=== PATIENT | female | born 1960 | race Caucasian/White ===

== ENCOUNTER 2017-06-18 21:03 | Emergency (ER) | payer BC ==
[2017-06-18 21:05] VITALS: BP 104/55; PULSE 88; RESP 20; TEMP 98.1; O2SAT 98
[2017-06-18 21:30] VITALS: BP 110/72; PULSE 74; RESP 18; O2SAT 98
[2017-06-18] MEDS ORDERED: NP T90TA PO (21:32)
[2017-06-18 21:42] LABS: AUTOMATED NEUTROPHIL # 2.4 TH/MM3 (1.8-7.7); BASOPHIL % 0.8 % (0.0-2.0); EOSINOPHIL # 0.3 TH/MM3 (0-0.4); EOSINOPHIL % 5.9 % (0.0-4.0); HEMATOCRIT 40.3 % (35.0-46.0); HEMOGLOBIN 13.2 GM/DL (11.6-15.3); LYMPH % 34.8 % (9.0-44.0); LYMPHOCYTE # 1.8 TH/MM3 (1.0-4.8); MEAN CELL VOLUME 94.9 FL (80.0-100.0); MEAN CORPUSCULAR HEMOGLOBIN 31.2 PG (27.0-34.0); MEAN CORPUSCULAR HGB CONC 32.8 % (32.0-36.0); MEAN PLATELET VOLUME 7.9 FL (7.0-11.0); MONOCYTE # 0.5 TH/MM3 (0-0.9); NEUT % 49.5 % (16.0-70.0); PLATELET COUNT 249 TH/MM3 (150-450); RED BLOOD COUNT 4.24 MIL/MM3 (4.00-5.30); RED CELL DISTRIBUTION WIDTH 12.1 % (11.6-17.2)
[2017-06-18] MEDS ORDERED: PANTOPRAZOLE SODIUM 40 MG VIAL IV PUSH ONE (21:45)
--- NOTE | 2017-06-18 21:52 | RADRPT ---
EXAM DATE/TIME: 06/18/2017 21:36 [place] COMPARISON: No previous studies available for comparison. INDICATIONS : Chest pain and rapid heart rate starting this afternoon. MEDICAL HISTORY : None. SURGICAL HISTORY : Lumpectomy. ENCOUNTER: Initial ACUITY: 1 day PAIN SCORE: 10 LOCATION: Bilateral chest FINDINGS: PA and lateral views of the chest demonstrate the lungs to be symmetrically aerated without evidence of mass, infiltrate or effusion. The cardiomediastinal contours are unremarkable. Osseous structure s are intact. CONCLUSION: No acute cardiopulmonary disease. Collin Lopez MD on June 18, 2017 at 21:49 Board Certified Radiologist. This report was verified electronically.
[2017-06-18 21:53] LABS: CHLORIDE 108 MEQ/L (98-107); SODIUM (NA) 143 MEQ/L (136-145)
[2017-06-18 21:56] LABS: CALCIUM 8.3 MG/DL (8.5-10.1)
[2017-06-18 21:57] LABS: ALBUMIN 3.5 GM/DL (3.4-5.0); BICARBONATE 27.6 MEQ/L (21.0-32.0); BLOOD UREA NITROGEN 21 MG/DL (7-18); GLUCOSE,RANDOM 119 MG/DL (74-106); LIPASE 175 U/L (73-393)
[2017-06-18 22:00] LABS: ALT (GPT) 54 U/L (10-53); AST (GOT) 26 U/L (15-37); CREATININE 0.69 MG/DL (0.50-1.00); GLOMERULAR FILTRATION RATE 87 ML/MIN (>89)
[2017-06-18 22:01] LABS: TOTAL BILIRUBIN ADULT 0.2 MG/DL (0.2-1.0)
[2017-06-18 22:02] LABS: ALKALINE PHOSPHATASE 116 U/L (45-117)
[2017-06-18 22:05] LABS: TROPONIN I LESS THAN 0.02 NG/ML (0.02-0.05)
[2017-06-18 22:30] VITALS: BP 113/70; PULSE 72; RESP 18; O2SAT 98
--- NOTE | 2017-06-18 23:12 | EKG ---
Date Performed: 06/18/2017 Time Performed: 21:48:30 PTAGE: 56 years EKG: Sinus rhythm LOW QRS VOLTAGE IN PRECORDIAL LEADS BORDERLINE ECG WARNING: DATA QUALITY MAY AFFECT INTERPRETATION NO PREVIOUS TRACING DOCTOR: Feliciano Nguyen Interpretating Date/Time 06/18/2017 23:12:30
--- NOTE | 2017-06-18 23:16 | PD ---
HPI Chief Complaint: Cardiac Complaint Time Seen by Provider: 21:17 Travel History International Travel<30 days: No Contact w/Intl Traveler<30days: No Traveled to known affect area: No History of Present Illness HPI Patient is a 56-year-old female who was driving her car today when she began to have palpitations that were off and on all day started around 4 PM she arrives to the ER around 8 PM patient said after that she had some eaten some food and got heartburn but it was unrelated to the palpitations. She has never had this experience before she did not take anything to help alleviate it she did not take her blood pressure she has only a subjective feeling of palpitations. In the ER heart rate is normal sinus rhythm. EKG is a rate of 70 bpm normal sinus rhythm. Denies thyroid issues denies stimulants denies any overuse of coffee or caffeine she did drink Coca-Cola in the morning she says but that is the only thing she drank. She has no family history of cardiac disease she has never had a stress test and she is not seen another doctor for this complaint. PFSH Past Medical History Cancer: Yes (Breast cancer ) Chemotherapy: Yes Diminished Hearing: No Radiation Therapy: Yes Thyroid Disease: Yes (Mary's ) Tetanus Vaccination: Unknown Influenza Vaccination: No Past Surgical History Tonsillectomy: Yes Other Surgery: Yes (Right lumpectomy ) Social History Alcohol Use: Yes (Glass of wine 2x weekly) Tobacco Use: No Substance Use: No Allergies-Medications (Allergen,Severity, Reaction): Coded Allergies: Sulfa (Sulfonamide Antibiotics) (Verified Allergy, Intermediate, Headache , 06/18/17) Patient unsure besides headache, "happened 40 years ago." Reported Meds & Prescriptions Reported Meds & Active Scripts Active Reported [facility] Thyroid (Thyroid) 90 Mg Tab 90 Mg PO BID Review of Systems Except as stated in HPI: all other systems reviewed are Neg Cardiovascular: Positive: Chest Pain or Discomfort, Palpitations Physical Exam Narrative GENERAL: Normal sinus rhythm on the monitor no apparent distress awake alert SKIN: Warm and dry. HEAD: Atraumatic. Normocephalic. EYES: Pupils equal and round. No scleral icterus. No injection or drainage. ENT: No nasal bleeding or discharge. Mucous membranes pink and moist. NECK: Trachea midline. No JVD. CARDIOVASCULAR: Regular rate and rhythm. RESPIRATORY: No accessory muscle use. Clear to auscultation. Breath sounds equal bilaterally. GASTROINTESTINAL: Abdomen soft, non-tender, nondistended. Hepatic and splenic margins not palpable. MUSCULOSKELETAL: Extremities without clubbing, cyanosis, or edema. No obvious deformities. NEUROLOGICAL: Awake and alert. No obvious cranial nerve deficits. Motor grossly within normal limits. Five out of 5 muscle strength in the arms and legs. Normal speech. PSYCHIATRIC: Appropriate mood and affect; insight and judgment normal. Data Data Last Documented VS Vital Signs Date Time Temp Pulse Resp B/P (MAP) Pulse Ox O2 Delivery O2 Flow Rate FiO2 06/19/17 01:43 98.1 81 16 109/69 (82) 97 06/19/17 00:30 Room Air Orders Orders Chest, Pa & Lat (06/18/17 ) Troponin I (06/18/17 21:28) Complete Blood Count With Diff (06/18/17 21:28) Comprehensive Metabolic Panel (06/18/17 21:28) Lipase (06/18/17 21:28) Electrocardiogram (06/18/17 ) Pantoprazole Inj (Protonix Inj) (06/18/17 21:45) Thyroid Stimulating Hormone (06/18/17 21:28) Troponin I (06/19/17 00:30) Ed Discharge Order (06/19/17 01:34) Labs Laboratory Tests Test 06/18/17 21:28 06/19/17 00:30 White Blood Count 5.0 TH/MM3 Red Blood Count 4.24 MIL/MM3 Hemoglobin 13.2 GM/DL Hematocrit 40.3 % Mean Corpuscular Volume 94.9 FL Mean Corpuscular Hemoglobin 31.2 PG Mean Corpuscular Hemoglobin Concent 32.8 % Red Cell Distribution Width 12.1 % Platelet Count 249 TH/MM3 Mean Platelet Volume 7.9 FL Neutrophils (%) (Auto) 49.5 % Lymphocytes (%) (Auto) 34.8 % Monocytes (%) (Auto) 9.0 % Eosinophils (%) (Auto) 5.9 % Basophils (%) (Auto) 0.8 % Neutrophils # (Auto) 2.4 TH/MM3 Lymphocytes # (Auto) 1.8 TH/MM3 Monocytes # (Auto) 0.5 TH/MM3 Eosinophils # (Auto) 0.3 TH/MM3 Basophils # (Auto) 0.0 TH/MM3 CBC Comment DIFF FINAL Differential Comment Blood Urea Nitrogen 21 MG/DL Creatinine 0.69 MG/DL Random Glucose 119 MG/DL Total Protein 7.0 GM/DL Albumin 3.5 GM/DL Calcium Level 8.3 MG/DL Alkaline Phosphatase 116 U/L Aspartate Amino Transf (AST/SGOT) 26 U/L Alanine Aminotransferase (ALT/SGPT) 54 U/L Total Bilirubin 0.2 MG/DL Sodium Level 143 MEQ/L Potassium Level 3.6 MEQ/L Chloride Level 108 MEQ/L Carbon Dioxide Level 27.6 MEQ/L Anion Gap 7 MEQ/L Estimat Glomerular Filtration Rate 87 ML/MIN Troponin I LESS THAN 0.02 NG/ML LESS THAN 0.02 NG/ML Lipase 175 U/L Thyroid Stimulating Hormone 3rd Gen 0.019 uIU/ML MDM Medical Decision Making Medical Screen Exam Complete: Yes Emergency Medical Condition: Yes Differential Diagnosis Palpitations versus anxiety versus SVT versus paroxysmal SVT versus hyperthyroid stimulated heart rate and other Narrative Course Patient is monitored for over 4 hours she has normal sinus rhythm never tachycardic the entire time in the ER her TSH is low and applying that she may have a high level of hormone floating in her system the could've stimulator in her heart and is possible she did have palpitations or tachycardia by hyperthyroid induction she is advised the fact that she needs to follow-up her thyroid levels with her doctor. And then S is a possible it could be stress I suggest stress is always a part of our systems and couldn't estimate Ebenezer as well. She is stable to troponins are negative EKG is normal sinus rhythm she is safe for discharge close follow-up with her primary care Diagnosis Primary Impression: Heart palpitations Additional Impression: Hyperthyroidism Patient Instructions: General Instructions, Heart Palpitations (ED), Hyperthyroidism (ED) Disposition: 01 DISCHARGE HOME Condition: Good Ty Doyle MD Jun 18, 2017 23:16
[2017-06-18 23:30] VITALS: BP 93/66; PULSE 66; RESP 18; O2SAT 96
[2017-06-19 00:30] VITALS: BP 106/66; PULSE 86; RESP 18; O2SAT 97
[2017-06-19 01:43] VITALS: BP 109/69; TEMP 98.1
== END 2017-06-19 01:47 | disposition home or self-care (01) ==
LOC: PHED 21:03
DX: R00.2 Palpitations (principal); E05.90 Thyrotoxicosis, unspecified without thyrotoxic crisis or storm; R94.31 Abnormal electrocardiogram [ECG] [EKG]; E06.3 Autoimmune thyroiditis; Z85.3 Personal history of malignant neoplasm of breast
CPT/HCPCS: 71020; 80053; 83690; 84443; 84484; 85025; 93005